=== PATIENT | male | born 1940 | race Caucasian/White ===

== ENCOUNTER 2025-01-01 06:20 | Day surgery (SDC) | payer BC ==
[2024-12-26 14:03] VITALS: BMI 27.0
[2025-01-01] MEDS ORDERED: BUPIVACAINE HCL/PF 0.5% (5MG/ML) 10 ML VIAL ONE (07:17)
[2025-01-01] MEDS ORDERED: LIDOCAINE 1%/EPI 1:100000 (20 ML MULTI DOSE VIAL) ONE (07:17)
[2025-01-01] MEDS ORDERED: TETRACAINE 0.5% OPHTH SOLN 2 ML BOTTLE ONE (07:17)
[2025-01-01] MEDS ORDERED: POVIDONE-IODINE 5% OPHTHALMIC PREP 30 ML SOLUTION ONE (07:17)
[2025-01-01] MEDS ORDERED: ceFAZolin SODIUM 1 GM VIAL ONE ×2 (07:17→08:26)
[2025-01-01] MEDS ORDERED: ERYTHROMYCIN 0.5% OPHTHALMIC OINTMENT 3.5 GM TUBE ONE (07:17)
[2025-01-01] MEDS ORDERED: MIDAZOLAM HCL 2 MG/2 ML SINGLE DOSE VIAL ONE ×2 (07:22→08:41)
[2025-01-01] MEDS ORDERED: ONDANSETRON 4 MG/2 ML VIAL ONE (07:59)
[2025-01-01] MEDS ORDERED: DEXAMETHASONE SOD PHOSPHATE 4 MG/1 ML VIAL ONE (07:59)
[2025-01-01] MEDS ORDERED: PROPOFOL 20 ML ONE (08:01)
[2025-01-01] MEDS ORDERED: ACETAMINOPHEN 325 MG TABLET (FP) PO PRN (09:20)
[2025-01-01] MEDS ORDERED: ONDANSETRON 4 MG/2 ML VIAL IVPUSH PRN (09:20)
[2025-01-01] MEDS ORDERED: LACTATED RINGERS SOLUTION 1,000 ML IV SCH (09:30)
[2025-01-01 10:07] VITALS: RESP 17; TEMP 97
[2025-01-01] MEDS ORDERED: ACETAMINOPHEN 325 MG TABLET (FP) ONE (10:24)
[2025-01-01 11:14] VITALS: BP 128/70; PULSE 63
== END 2025-01-01 10:50 | disposition home or self-care (01) ==
LOC: FASU 06:20
PROVIDERS: ATTEND Ophthalmology
PROC: 08SQ0ZZ Reposition Right Lower Eyelid, Open Approach (ICD-10-PCS; principal; 2025-01-01 08:08)
DX: H02.132 Senile ectropion of right lower eyelid (principal)
CPT/HCPCS: 94760